=== PATIENT | female | born 1970 | race Caucasian/White ===

== ENCOUNTER 2018-04-03 09:17 | Emergency (ER) | payer SELFPAY ==
[2018-04-03 09:31] VITALS: BP 135/80; PULSE 100; RESP 17; TEMP 37.3; O2SAT 100
--- NOTE | 2018-04-03 10:49 | ED_ITS ---
HPI - Weakness General Chief complaint: Weakness Stated complaint: JOINT SWELLING Time Seen by Provider: 04/03/18 10:40 Source: patient Mode of arrival: ambulatory Limitations: no limitations History of Present Illness HPI Narrative: Patient is an otherwise healthy 47-year-old female for evaluation of bilateral ankle and foot pain and swelling. She also complains of bilateral knee pain and bilateral hip pain. She is also complaining of bilateral wrist and hand pain. No trauma. States she has never had this before. Went to go see a provider over the walk-in clinic who sent her here to the emergency department. She has had subjective fevers. No travel. No camping. No rashes. No history of gout. No recent antibiotics. Related Data Home Medications Medication Instructions Recorded Confirmed Protandim 1 dose PO DAILY 04/03/18 04/03/18 Previous Rx's Medication Instructions Recorded hydrocodone-acetaminophen [P[place] Maria] 1 tab PO Q4-6H PRN #7 tab 04/03/18 prednisone 40 mg PO DAILY #28 tab 04/03/18 Allergies Allergy/AdvReac Type Severity Reaction Status Date / Time codeine [CODEINE] Allergy Unknown Verified 04/03/18 12:09 Penicillins [PENICILLINS] Allergy Unknown Verified 04/03/18 12:09 Sulfa (Sulfonamide Allergy Unknown Verified 04/03/18 12:09 Antibiotics) [SULFA (SULFONAMIDE ANTIBIOTICS)] Review of Systems Constitutional Denies fever(s), Denies headache(s) and Denies weakness Eyes Denies change in vision and Denies diplopia ENT Ears, Nose, Mouth, and Throat: Denies headache(s) and Denies disequilibrium Cardiovascular Denies chest pain, Denies syncope and Denies dyspnea Respiratory Denies dyspnea Gastrointestinal Gastrointestinal: Denies abdominal pain, Denies nausea and Denies vomiting Genitourinary Denies dysuria, Denies pelvic pain and Denies vaginal discharge Musculoskeletal Denies back pain, Reports myalgias, Reports arthralgias and Denies tingling Integumentary/Breasts Denies rash Neurologic Denies behavioral changes, Denies syncope, Denies headache(s), Denies focal weakness, Denies tingling, Reports paresthesias, Denies disequilibrium and Denies weakness Psychiatric Denies anxiety and Denies behavioral changes Hematologic/Lymphatic Denies easy bleeding, Denies easy bruising and Denies lymphadenopathy Allergic/Immunologic Comments: Has had a sore throat [facility] Medical History Healthy adult (Acute) Surgical History History of third molar tooth extraction S/P total abdominal hysterectomy and bilateral salpingo-oophorectomy Status post breast lumpectomy Status post laparoscopy Status post laparoscopy Status post tonsillectomy and adenoidectomy Family History Father Age: 67 Diabetes mellitus Hypertension High cholesterol Grandfather Hypertension Cancer Diabetes mellitus High cholesterol Grandmother Stroke High cholesterol Mother Age: 68 Breast cancer Diabetes mellitus Chemical dependency High cholesterol Grandmother Diabetes mellitus Hypertension Social History Smoking Status: Never smoker second hand exposure: No alcohol intake: current (vodka tonic about once a month.) substance use type: does not use Family History Father Age: 67 Diabetes mellitus Hypertension High cholesterol Grandfather Hypertension Cancer Diabetes mellitus High cholesterol Grandmother Stroke High cholesterol Mother Age: 68 Breast cancer Diabetes mellitus Chemical dependency High cholesterol Grandmother Diabetes mellitus Hypertension Social History Smoking Status: Never smoker second hand exposure: No alcohol intake: current (vodka tonic about once a month.) substance use type: does not use Exam Initial Vital Signs Initial Vital Signs: Vital Signs Temperature 99.1 F 04/03/18 09:31 Pulse Rate 100 H 04/03/18 09:31 Respiratory Rate 17 04/03/18 09:31 Blood Pressure 135/80 04/03/18 09:31 Pulse Oximetry 100 04/03/18 09:31 Const General: cooperative, healthy appearing, well developed, well groomed and No acute distress Orientation: alert, awake and oriented x3 HENMT Head: normal to inspection and normocephalic Chest Chest: normal inspection of the chest Resp Effort & Inspection: normal respiratory effort Auscultation: clear to auscultation bilaterally Cardio Rate: regular rate Rhythm: regular rhythm Pulses: radial pulses present GI Inspection: non-distended Palpation: soft, No firm and No tender Back/Spine/Pelvis Cervical Spine: No cervical spinal tenderness Thoracic/Lumbar Spine: No thoracic spinal tenderness and No lumbar spinal tenderness Skin Lesions: no lesions Rashes: no rashes Neuro General: alert, awake and oriented x3 Extrem Other: Patient can move all 4 extremities. She does have minor swelling to bilateral ankles left being slightly worse than right. Also has some swelling to the hands with left being slightly worse than the right. Does have tenderness to palpation of bilateral knees without any swelling. Same with hips. No elbow tenderness no shoulder tenderness. Psych Appearance: grossly normal and well kempt Course Orders Ordered: ED Orders 04/03/18 10:49 EKG-12 Lead Stat 04/03/18 11:40 C-Reactive Protein Quant Stat Complete Blood Count AUTO DIFF Stat Comprehensive Metabolic Panel Stat Erythrocyte Sedimentation Rate Stat Lipase Stat Monotest Stat Thyroid Stimulating Hormone Stat Uric Acid Stat Discontinued Medications Sodium Chloride (Normal Saline 0.9%) 1,000 mls @ 1,000 mls/hr IV BOLUS ONE Stop: 04/03/18 11:48 Last Admin: 04/03/18 11:59 Dose: 1,000 mls/hr Oxycodone/Acetaminophen (Percocet 5/325) 1 tab PO NOW ONE Stop: 04/03/18 12:08 Last Admin: 04/03/18 12:08 Dose: 1 tab Vital Signs - 8 hr 04/03/18 09:31 04/03/18 12:11 04/03/18 13:40 Temperature 99.1 F Pulse Rate 100 H 87 92 H Respiratory Rate 17 14 18 Blood Pressure 135/80 113/69 Blood Pressure [Left Arm] 122/72 Pulse Oximetry 100 99 98 MDM - Weakness Lab Data Attestation: I reviewed the patient's lab results. Result diagrams: 04/03/18 11:40 04/03/18 11:40 Lab Results 04/03/18 04/03/18 04/03/18 Range/Units 11:40 11:40 11:40 WBC 8.7 (4.5-11.0) X10^3/uL RBC 5.03 (4.0-5.2) X10^6/uL Hgb 14.8 (12.0-16.0) g/dL Hct 42.2 (36-46) % MCV 83.8 (80-100) fL MCH 29.3 (26-34) PG MCHC 35.0 (30-36) % RDW 13.3 (11.6-14.8) % Plt Count 274 (150-400) X10^3/uL Neut % (Auto) 65.7 (50-75) % Lymph % (Auto) 20.8 L (25-40) % [place] % (Auto) 10.7 (3-14) % Eos % (Auto) 1.7 L (2-4) % Baso % (Auto) 1.1 (0-2) % Neut # (Auto) 5700 (3965-8305) /uL Lymph # (Auto) 1800 (8606-9806) /uL [place] # (Auto) 900 (0-900) /uL Eos # (Auto) 100 (0-450) /uL Baso # (Auto) 100 (0-100) /uL ESR 11 (0-20) MM/HR Sodium 137 (137-145) mmol/L Potassium 4.1 (3.4-5.1) mmol/L Chloride 99 (98-107) mmol/L Carbon Dioxide 27 (22-32) mmol/L BUN 12 (7-17) mg/dL Creatinine 0.60 (0.52-1.04) mg/dL Estimated GFR > 60.0 (>60) mL/min BUN/Creatinine Ratio 20.0 (6-22) Glucose 92 (70-100) mg/dL Uric Acid 5.2 (2.5-6.2) mg/dL Calcium 9.5 (8.4-10.2) mg/dL Total Bilirubin 0.9 (0.2-1.3) mg/dL AST 39 H (14-36) IU/L ALT 68 H (9-52) IU/L Alkaline Phosphatase 131 H (38-126) U/L C-Reactive Protein 5.0 H (<1.0) mg/dL Total Protein 8.0 (6.3-8.2) g/dL Albumin 4.6 (3.5-5.0) g/dL Globulin 3.4 (1.7-4.1) g/dL Albumin/Globulin Ratio 1.4 (1.0-2.8) Lipase 27 (23-300) U/L TSH (0.47-4.68) uIU/mL Monoscreen Negative (Negative) 04/03/18 Range/Units 11:40 WBC (4.5-11.0) X10^3/uL RBC (4.0-5.2) X10^6/uL Hgb (12.0-16.0) g/dL Hct (36-46) % MCV (80-100) fL MCH (26-34) PG MCHC (30-36) % RDW (11.6-14.8) % Plt Count (150-400) X10^3/uL Neut % (Auto) (50-75) % Lymph % (Auto) (25-40) % [place] % (Auto) (3-14) % Eos % (Auto) (2-4) % Baso % (Auto) (0-2) % Neut # (Auto) (3408-6218) /uL Lymph # (Auto) (9610-7700) /uL [place] # (Auto) (0-900) /uL Eos # (Auto) (0-450) /uL Baso # (Auto) (0-100) /uL ESR (0-20) MM/HR Sodium (137-145) mmol/L Potassium (3.4-5.1) mmol/L Chloride (98-107) mmol/L Carbon Dioxide (22-32) mmol/L BUN (7-17) mg/dL Creatinine (0.52-1.04) mg/dL Estimated GFR (>60) mL/min BUN/Creatinine Ratio (6-22) Glucose (70-100) mg/dL Uric Acid (2.5-6.2) mg/dL Calcium (8.4-10.2) mg/dL Total Bilirubin (0.2-1.3) mg/dL AST (14-36) IU/L ALT (9-52) IU/L Alkaline Phosphatase (38-126) U/L C-Reactive Protein (<1.0) mg/dL Total Protein (6.3-8.2) g/dL Albumin (3.5-5.0) g/dL Globulin (1.7-4.1) g/dL Albumin/Globulin Ratio (1.0-2.8) Lipase (23-300) U/L TSH 1.62 (0.47-4.68) uIU/mL Monoscreen (Negative) Point of Care Testing Test Results Negative Urine Dip Bedside Urine Glucose Negative Bedside Urine Bilirubin - Negative Bedside Urine Ketone +++ 80 Urine Specific [place] 1.025 Bedside Urine Occult Blood - Negative Bedside Urine pH 5.5 Bedside Urine Protein - Negative Bedside Urine Urobilinogen - Negative Bedside Urine Nitrite - Negative Bedside Urine Leukocytes - Negative Esterase ECG Data Attestation: I personally reviewed and interpreted this ECG as follows: Prior ECG tracings: not available for review Interpretation: Sinus rhythm Ventricular rate of 91 Normal axis Normal QRS Normal QTC No ST T wave changes MDM Narrative Medical decision making narrative: Patient is nontoxic appearing. Her physical exam is not consistent with gout or cellulitis. No specific trauma so doubt musculoskeletal etiology. She has not been traveling in no rashes. Has a low- grade fever today but is less than 100.4. Labs are unremarkable except for slightly elevated CRP which in this case is fairly nonspecific. I considered other rheumatologic issue. Also considered other etiologies such as endocarditis however her physical exam is on labs do not fit this diagnosis. Unsure the exact etiology however I do not feel there is an emergent condition. I do not see any indications for antibiotics. Will hold on any radiologic studies for now. Will send home with a course of steroids. Patient was given return precautions. Patient was given a card with a phone number that she could call to establish primary care in the local area. I do feel she needs a rheumatologic workup. Discharge Plan Departure Patient Disposition: Home Clinical Impression: Polyarthralgia Discharge Date/Time: 04/03/18 13:40 Interventions: ED Discharge Assessment Last Done: 04/03/18 13:40 Instructions: DI for Arthralgia Activity Restrictions/Additional Instructions: Take the steroids and the pain medication as directed. Contact the walk-in clinic or the number on the card you were provided to establish a primary care doctor for follow-up. Return to the emergency department for any new or worsening symptoms Prescriptions: New hydrocodone-acetaminophen [Panna Maria] 5-325 mg tablet 1 tab PO Q4-6H PRN (Reason: pain) Qty: 7 RF: 0 prednisone 20 mg tablet 40 mg PO DAILY Qty: 28 RF: 0 No Action Protandim 1 dose PO DAILY RF: 0 Referrals: Luzma Chua DO [Primary Care Provider] -
--- NOTE | 2018-04-03 11:07 | PC.NURSE ---
tenderness left upper abominal, wiith palpation, right lower abdominal pain with palpation, abd soft, , +bt in 4 quardrant.
--- NOTE | 2018-04-03 11:09 | PC.NURSE ---
Addendum entered by Pili Mora R.N. 04/03/18 11:13: onset of sxs march 24., pain worsen with movement, feverish, not measured at home. has been taking ibuprofen 200mg every 4 hours intermittently, no appetite for couple of days. has been taking herbal supplement, protandum for 2 years. Original Note: noted bilateral ankle with swelling, +dcms intact, bilateral wrist with swelling and small redness multiple places, pt reports, hurts to take deep breath,fingers with multiple swelling and also with redness, rom limited due to pain, +dcms intact. no resp distress noted, breath sound clear to auscultate.
[2018-04-03 11:58] LABS: Add Manual Diff / Slide Review NO; Basophils Absolute Auto 100 /uL (0-100); Basophils Percent Auto 1.1 % (0-2); Eosinophils Absolute Auto 100 /uL (0-450); Eosinophils Percent Auto 1.7 % (2-4); Hematocrit 42.2 % (36-46); Hemoglobin 14.8 g/dL (12.0-16.0); Lymphocytes Absolute Auto 1800 /uL (1100-4500); Lymphocytes Percent Auto 20.8 % (25-40); Mean Corpuscular Hemoglobin 29.3 PG (26-34); Mean Corpuscular Volume 83.8 fL (80-100); Monocytes Absolute Auto 900 /uL (0-900); Monocytes Percent Auto 10.7 % (3-14); Neutrophils Absolute Auto 5700 /uL (1500-7000); Neutrophils Percent Auto 65.7 % (50-75); Platelet Count 274 X10^3/uL (150-400); Red Blood Cell Count 5.03 X10^6/uL (4.0-5.2); Red Cell Distribution Width 13.3 % (11.6-14.8); White Blood Cell Count 8.7 X10^3/uL (4.5-11.0)
[2018-04-03] MEDS: SODIUM CHLORIDE 0.9% 1,000 ML 1000 ML IV (11:59)
[2018-04-03 12:06] LABS: Alanine Aminotransferase 68 IU/L (9-52); Albumin 4.6 g/dL (3.5-5.0); Albumin Globulin Ratio 1.4 (1.0-2.8); Alkaline Phosphatase 131 U/L (38-126); Aspartate Aminotransferase 39 IU/L (14-36); Bilirubin Total 0.9 mg/dL (0.2-1.3); Blood Urea Nitrogen 12 mg/dL (7-17); Calcium 9.5 mg/dL (8.4-10.2); Carbon Dioxide 27 mmol/L (22-32); Chloride 99 mmol/L (98-107); Estimated Glomerular Filt Rate > 60.0 mL/min (>60); Globulin 3.4 g/dL (1.7-4.1); Glucose 92 mg/dL (70-100); HEMOLYSIS < 15 (0-50); Lipase 27 U/L (23-300); Potassium 4.1 mmol/L (3.4-5.1); Sodium 137 mmol/L (137-145); Uric Acid 5.2 mg/dL (2.5-6.2)
[2018-04-03] MEDS: OXYCODONE/ACETAMINOPHEN 5/325 TABLET 1 TAB PO (12:08)
[2018-04-03 12:09] LABS: Monotest Negative (Negative)
[2018-04-03 12:11] VITALS: BP 122/72; PULSE 87; RESP 14; O2SAT 99
[2018-04-03 12:29] LABS: Erythrocyte Sedimentation Rate 11 MM/HR (0-20)
[2018-04-03 13:01] LABS: Thyroid Stimulating Hormone 1.62 uIU/mL (0.47-4.68)
[2018-04-03 13:40] VITALS: BP 113/69; PULSE 92; RESP 18; O2SAT 98
== END 2018-04-03 13:40 | disposition home or self-care (01) ==
PROVIDERS: Emergency Provider Emergency Medicine; PCP Family Medicine
DX: M25.50 Pain in unspecified joint (principal)
CPT/HCPCS: 36591; 80053; 81003; 81025; 83690; 84443; 84550; 85025; 85651; 86140; 86318; 93005; 93010; 96360; 96361; 99283; 99284

== ENCOUNTER → 2020-12-30 14:55 | Outpatient (CLI) | payer OTHER, SELFPAY ==
--- NOTE | 2020-12-30 15:02 | DI.MG.S_ITS ---
BILATERAL DIGITAL DIAGNOSTIC MAMMOGRAM 3D/2D: 12/30/2020 CLINICAL: Focal left breast pain at nipple. Comparison is made to exams dated: 01/20/2017 ultrasound, 01/20/2017 ultrasound, 01/20/2017 mammogram, and 02/27/2014 mammogram - [facility]. There are scattered fibroglandular elements in both breasts. No significant masses, calcifications, or other findings are seen in either breast. IMPRESSION: INCOMPLETE: NEEDS ADDITIONAL IMAGING EVALUATION No suspicious finding. Ultrasound will be performed for further workup. This exam was interpreted at Station ID: [id number]. NOTE: For mammograms, a report in lay terms will be sent to the patient. Approximately 15% of breast malignancies will not be visualized mammographically. In the management of a palpable breast mass, a negative mammogram must not discourage biopsy of a clinically suspicious lesion. Electronically Signed By: Jd Zamarripa M.D. jr/:12/30/2020 15:42:46 Entry: - 01/01/2021 07:26:24 copy to: Omayra Pabon ACR BI-RADS Category 0: Incomplete [id number]
--- NOTE | 2020-12-30 15:02 | DI.US.S_ITS ---
ULTRASOUND OF LEFT BREAST AND AXILLA: 12/30/2020 CLINICAL: Focal left breast pain. Comparison is made to exams dated: 12/30/2020 mammogram, 01/20/2017 ultrasound, 01/20/2017 mammogram, 11/30/2011 mammogram, 02/27/2014 mammogram, and 09/22/2010 mammogram - [facility]. Color flow, real-time, and Doppler ultrasound of the left breast axilla were performed. [place] scale images of the real-time examination were reviewed. No significant abnormalities were seen sonographically in the left breast or the left axilla. IMPRESSION: NEGATIVE There is no sonographic evidence of malignancy. Return to annual mammogram screening schedule is recommended. This exam was interpreted at Station ID: [id number]. Electronically Signed By: Jd Zamarripa M.D., jr/lou:12/30/2020 15:43:14 copy to: Omayra Pabon letter sent: Normal Exam Ultrasound BI-RADS: 1 Negative
== END ==
PROVIDERS: PCP Obstetrics & Gynecology; Referring Provider Obstetrics & Gynecology; Visit Provider Obstetrics & Gynecology
DX: R92.2 Inconclusive mammogram (principal); N64.4 Mastodynia
CPT/HCPCS: 76642; 77066; G0279

== ENCOUNTER → 2021-01-27 09:44 | Outpatient (CLI) | payer OTHER, SELFPAY ==
[2021-01-27 12:03] LABS: Free T4, Direct Thyroxine 1.05 ng/dL (0.78-2.19)
[2021-01-27 12:06] LABS: Follicle Stimulating Hormone 34.7 mIU/mL
[2021-01-27 12:17] LABS: Thyroid Stimulating Hormone 2.29 uIU/mL (0.47-4.68)
[2021-01-27 12:19] LABS: Cancer Antigen 125 6.7 U/mL (0-35)
[2021-02-07 15:08] LABS: Percent Free Testosterone 2.06 % (0.50-2.80); Testosterone Free 0.57 ng/dL (0.10-0.85); Testosterone Total 27.6 ng/dL (.)
== END ==
PROVIDERS: Referring Provider Obstetrics & Gynecology; Visit Provider Obstetrics & Gynecology
DX: R14.0 Abdominal distension (gaseous) (principal)
CPT/HCPCS: 36415; 83001; 84402; 84403; 84439; 84443; 86304

== ENCOUNTER → 2022-08-13 12:00 | Outpatient (CLI) | payer OTHER, SELFPAY | PROVIDERS: Visit Provider Physician Assistant | DX: N39.0 Urinary tract infection, site not specified (principal) | CPT/HCPCS: 87086 ==

== ENCOUNTER → 2022-09-20 16:08 | Outpatient (CLI) | payer OTHER, SELFPAY ==
[2022-09-20 18:13] LABS: Appearance Urine UA Cloudy; Color Urine UA Orange
[2022-09-20 18:17] LABS: Bacteria Urine Moderate (10-30); Culture Indicated Urine Specimen Cultured; Mucus Urine 1+ (Negative); RBC Urine 5-10/HPF (0-5/HPF); Squamous Epithelial Cell Urine None Seen (0-5/HPF); WBC Urine 30-100/HPF (0-5/HPF)
== END ==
PROVIDERS: Referring Provider Obstetrics & Gynecology; Visit Provider Obstetrics & Gynecology
DX: R30.0 Dysuria (principal)
CPT/HCPCS: 81001; 87086

== ENCOUNTER → 2023-02-10 12:39 | Outpatient (CLI) | payer OTHER, SELFPAY ==
[2023-02-10 13:47] LABS: Add Manual Diff / Slide Review NO; Basophils Absolute Auto 100 /uL (0-100); Basophils Percent Auto 1.6 % (0-2); Eosinophils Absolute Auto 200 /uL (0-450); Eosinophils Percent Auto 2.7 % (2-4); Hematocrit 42.3 % (36-46); Hemoglobin 14.2 g/dL (12.0-16.0); Lymphocytes Absolute Auto 1800 /uL (1100-4500); Lymphocytes Percent Auto 31.8 % (25-40); Mean Corpuscular HGB Conc 33.5 % (30-36); Mean Corpuscular Hemoglobin 29.8 PG (26-34); Mean Corpuscular Volume 89.1 fL (80-100); Monocytes Absolute Auto 500 /uL (0-900); Monocytes Percent Auto 8.9 % (3-14); Neutrophils Absolute Auto 3100 /uL (1500-7000); Platelet Count 239 X10^3/uL (150-400); Red Blood Cell Count 4.75 X10^6/uL (4.0-5.2); Red Cell Distribution Width 13.1 % (11.6-14.8); White Blood Cell Count 5.6 X10^3/uL (4.5-11.0)
[2023-02-10 14:04] LABS: BUN Creatinine Ratio 19.7 (6-22); Blood Urea Nitrogen 14 mg/dL (7-17); Calcium 10.1 mg/dL (8.4-10.2); Carbon Dioxide 30 mmol/L (22-32); Chloride 101 mmol/L (98-107); Estimated Glomerular Filt Rate > 60 mL/min (>60); Glucose 82 mg/dL (70-100); HEMOLYSIS < 15 (0-50); Sodium 139 mmol/L (137-145); Uric Acid 3.4 mg/dL (2.5-6.2)
[2023-02-10 14:08] LABS: High Sensitivity CRP - Cardiac 0.6 mg/L (1.0-3.0); Rheumatoid Factor < 8.6 IU/mL (<12.0)
[2023-02-10 14:22] LABS: Erythrocyte Sedimentation Rate 4 MM/HR (0-20)
[2023-02-10 14:45] LABS: Thyroid Stimulating Hormone 0.909 uIU/mL (0.47-4.68)
[2023-02-11 18:34] LABS: SS A Ro Sjogrens Antibody < 0.2 AI (0.0-0.9); SS B La Sjogrens Antibody < 0.2 AI (0.0-0.9)
[2023-02-14 13:37] LABS: ANA Screen, IFA Negative (.)
== END ==
PROVIDERS: Referring Provider Ophthalmology; Visit Provider Physician Assistant Medical
DX: R31.0 Gross hematuria (principal); R39.9 Unspecified symptoms and signs involving the genitourinary system
CPT/HCPCS: 36415; 80048; 84443; 84550; 85025; 85651; 86038; 86140; 86235; 86430

== ENCOUNTER → 2023-11-23 16:34 | Outpatient (ROUT) | payer OTHER, SELFPAY | PROVIDERS: PCP Family Medicine; Visit Provider Specialist | DX: N89.8 Other specified noninflammatory disorders of vagina (principal) | CPT/HCPCS: 87480; 87510; 87660 ==

== ENCOUNTER 2023-12-15 12:23 | Emergency (ER) | payer OTHER, SELFPAY ==
[2023-12-15] VITALS (8 sets, daily range): BP systolic 88–108; BP diastolic 56–70; PULSE 73–82; RESP 16–20; TEMP 36.9; O2SAT 98–100; BMI 22.8
[2023-12-15 13:27] LABS: Add Manual Diff / Slide Review NO; Basophils Absolute Auto 0 /uL (0-100); Basophils Percent Auto 0.8 % (0-2); Eosinophils Absolute Auto 100 /uL (0-450); Eosinophils Percent Auto 2.5 % (2-4); Hematocrit 43.4 % (36-46); Hemoglobin 14.4 g/dL (12.0-16.0); Lymphocytes Absolute Auto 1800 /uL (1100-4500); Lymphocytes Percent Auto 30.3 % (25-40); Mean Corpuscular HGB Conc 33.2 % (30-36); Mean Corpuscular Hemoglobin 30.3 PG (26-34); Mean Corpuscular Volume 91.3 fL (80-100); Monocytes Absolute Auto 500 /uL (0-900); Monocytes Percent Auto 8.4 % (3-14); Neutrophils Absolute Auto 3400 /uL (1500-7000); Platelet Count 236 X10^3/uL (150-400); Prothrombin Time 11.5 SECONDS (9.4-12.5); Red Blood Cell Count 4.75 X10^6/uL (4.0-5.2); Red Cell Distribution Width 13.2 % (11.6-14.8); White Blood Cell Count 5.8 X10^3/uL (4.5-11.0)
[2023-12-15 13:30] LABS: Alanine Aminotransferase 21 IU/L (<35); Albumin 4.6 g/dL (3.5-5.0); Albumin Globulin Ratio 1.8 (1.0-2.8); Alkaline Phosphatase 65 U/L (38-126); Aspartate Aminotransferase 27 IU/L (14-36); BUN Creatinine Ratio 13.3 (6-22); Blood Urea Nitrogen 10 mg/dL (7-17); Calcium 9.6 mg/dL (8.4-10.2); Carbon Dioxide 28 mmol/L (22-32); Chloride 103 mmol/L (98-107); Estimated Glomerular Filt Rate > 60 mL/min (>60); Globulin 2.6 g/dL (1.7-4.1); Glucose 88 mg/dL (70-100); HEMOLYSIS < 15 (0-50); PTT Partial Thromboplastin Tim 38 SECONDS (25.1-36.5); Potassium 3.9 mmol/L (3.4-5.1); Sodium 138 mmol/L (137-145); Total Protein 7.2 g/dL (6.3-8.2)
--- NOTE | 2023-12-15 13:36 | EKG_ITS ---
[address] [address] Test Date: 2023-12-15 Pat Name: Nasima Gruber Department: [facility] Room: Gender: Female Customer Retention Representative: ANNIA : [id number] Requested By: Order Number: [id number] Reading MD: Vick Benavides MD Measurements Intervals [place] Rate: 74 P: 67 MA: 214 QRS: 0 QRSD: 76 T: 49 QT: 374 QTc: 415 Interpretive Statements Sinus rhythm with 1st degree AV block Septal infarct , age undetermined Electronically Signed On 12-15-2023 14:51:52 PST by Vick Benavides MD
--- NOTE | 2023-12-15 15:00 | ED_ITS ---
HPI - Abdominal Pain General Chief Complaint: Abdominal Pain Stated Complaint: severe stomach px constipation black stool Time Seen by Provider: 12/15/23 15:00 Source: patient, RN notes reviewed and old records reviewed Mode of arrival: Ambulatory Limitations: no limitations History of Present Illness HPI narrative: 53-year-old history of diabetes type 2, left-sided duplicated kidney, prior hysterectomy with history of ex lap endometriosis and adhesions x2 who presents with complaint of abdominal pain that has been going on for several days. Patient states she will intermittently have issues where she has a abdominal and rectal pain after a bowel movement for a couple hours and then will resolve. She has not had a bowel movement in about 9 days took a stool softener and Dulcolax on Monday without improvement did not enema and Dulcolax on had a bowel movement had her typical pattern of pain but has not resolved since. She states she did take a dose of Pepto-Bismol last night. After that she had a black bowel movement last night as well as today. She denies fevers. Denies chest pain or shortness of breath. She has had some nausea but no vomiting. She describes pain in his lower abdominal but a little bit more in the left. Little bit of left flank pain as well. Patient denies any urinary symptoms. She has not had any bright red blood in her stool. States her only home medications or majority she has been taking this from 2021. Has a history of hysterectomy, endometriosis had ex lap and lysis of adhesions x2. She also has a known duplicated kidney on the left. States allergies to sulfa and penicillin. No tobacco, alcohol or recreational drugs. Related Data Home Medications Medication Instructions Recorded Confirmed tirzepatide 15 mg/0.5 mL 12.5 mg SUBCUT QWEEK 09/06/23 09/06/23 subcutaneous pen injector Previous Rx's Medication Instructions Recorded prednisone 10 mg tablets in a dose See Rx Instructions PO .COMPLEX 12/15/23 pack #15 ea Allergies Allergy/AdvReac Type Severity Reaction Status Date / Time codeine [CODEINE] Allergy Unknown Verified 12/15/23 12:20 Penicillins [PENICILLINS] Allergy Unknown Verified 12/15/23 12:20 Sulfa (Sulfonamide Allergy Unknown Verified 12/15/23 12:20 Antibiotics) [SULFA (SULFONAMIDE ANTIBIOTICS)] Review of Systems Review of Systems ROS Unobtainable: All systems reviewed & are unremarkable except as noted in HPI and below Patient History Medical History Anxiety (~1999) Frequent UTI (~1991) Type 2 diabetes mellitus without complication, with no history of insulin use Ankle pain Chicken pox (~1975) Endometriosis (~1996) Healthy adult Surgical History History of cholecystectomy (~05/01/20) Anesthesia Bone spur (~2005) Status post laparoscopy (~2003) Status post laparoscopy (~2010) S/P total abdominal hysterectomy and bilateral salpingo-oophorectomy (~2007) Status post breast lumpectomy Status post tonsillectomy and adenoidectomy History of third molar tooth extraction Family History Father Diabetes mellitus Hypertension High cholesterol Cancer Grandfather Hypertension Cancer Diabetes mellitus High cholesterol Grandmother Stroke High cholesterol Heart disease Mother Breast cancer Diabetes mellitus Chemical dependency High cholesterol Hyperlipidemia Hypertension Mental health problem Grandmother Diabetes mellitus Hypertension Heart disease Hyperlipidemia Sister Drowned Grandfather Cancer Diabetes mellitus High cholesterol Hypertension Social History Smoking Status: Former smoker second hand exposure: No alcohol intake: current (vodka tonic about once a month.) substance use type: does not use Smoking Status: Former smoker Exam Narrative Exam Narrative: GENERAL: Alert and oriented x three, female in mild distress. HEENT: Head normocephalic, atraumatic, EOMI, pupils reactive, face symmetric, moist mucous membranes NECK: Supple, full range of motion CARDIOVASCULAR: Regular rate and rhythm without murmurs, rubs or gallops. RESPIRATORY: Breath sounds equal bilaterally, no wheezes rales or rhonchi. ABDOMEN: Soft, patient has some mild tenderness in other quadrants which is referred to the left side, she is tender on the left lower quadrant. Normoactive bowel sounds all 4 quadrants. No guarding or rebound, rigidity, no mass, nondistended. : No CVA tenderness bilaterally EXTREMITIES: Normal range of motion, no clubbing or edema. Neurovascularly intact NEUROLOGICAL: Cranial nerves II through XII grossly intact. Moving all extremities SKIN: Warm, dry, no petechiae, no rashes or lesions. Initial Vital Signs Initial Vital Signs: Vital Signs Temperature 98.5 F 12/15/23 12:26 Pulse Rate 80 12/15/23 12:26 Respiratory Rate 16 12/15/23 12:26 Blood Pressure 101/70 12/15/23 12:26 Pulse Oximetry 100 12/15/23 12:26 Oxygen Delivery Method Room Air 12/15/23 12:26 Course Orders Ordered: ED Orders 12/15/23 12:40 Complete Blood Count AUTO DIFF Stat Comprehensive Metabolic Panel Stat Lipase Stat PTT Partial Thromboplastin Hip[place]ito Stat Prothrombin Time INR Stat Type and Screen Stat 12/15/23 13:08 EKG-12 Lead Stat 12/15/23 15:17 CT abdomen pelvis w con Stat Ondansetron HCl (Ondansetron 4 Mg/2 Ml Inj) 4 mg IV NOW PRN PRN Reason: Nausea And Vomiting Ondansetron HCl (Ondansetron 4 Mg Odt) 4 mg SL NOW PRN PRN Reason: Nausea And Vomiting Discontinued Medications Pantoprazole Sodium (Pantoprazole 40 Mg Vial) 80 mg IV NOW ONE Stop: 12/15/23 13:09 Prednisone (Prednisone 20 Mg Tablet) 60 mg PO NOW ONE Stop: 12/15/23 17:37 Last Admin: 12/15/23 17:41 Dose: 60 mg Documented By: DANG Vital Signs Vital signs: Vital Signs - 8 hr 12/15/23 12:26 12/15/23 12:35 12/15/23 12:35 Temperature 98.5 F Pulse Rate 80 79 Respiratory Rate 16 Blood Pressure 101/70 108/65 Pulse Oximetry 100 100 Oxygen Delivery Method Room Air 12/15/23 13:00 12/15/23 13:00 12/15/23 13:30 Temperature Pulse Rate 75 80 Respiratory Rate 17 19 Blood Pressure 101/64 Pulse Oximetry 99 98 Oxygen Delivery Method 12/15/23 13:30 12/15/23 13:51 12/15/23 13:51 Temperature Pulse Rate 79 Respiratory Rate 20 Blood Pressure 99/65 88/69 L Pulse Oximetry 100 Oxygen Delivery Method 12/15/23 14:00 12/15/23 14:00 12/15/23 14:30 Temperature Pulse Rate 73 Respiratory Rate 17 Blood Pressure 99/56 L 91/59 L Pulse Oximetry 100 Oxygen Delivery Method 12/15/23 14:30 12/15/23 15:00 12/15/23 15:00 Temperature Pulse Rate 82 78 Respiratory Rate 17 16 Blood Pressure 92/58 L Pulse Oximetry 98 100 Oxygen Delivery Method MDM - Abdominal Pain Lab Data 12/15/23 12:40 12/15/23 12:40 Labs: Lab Results 12/15/23 Range/Units 12:40 WBC 5.8 (4.5-11.0) X10^3/uL RBC 4.75 (4.0-5.2) X10^6/uL Hgb 14.4 (12.0-16.0) g/dL Hct 43.4 (36-46) % MCV 91.3 (80-100) fL MCH 30.3 (26-34) PG MCHC 33.2 (30-36) % RDW 13.2 (11.6-14.8) % Plt Count 236 (150-400) X10^3/uL Neut % (Auto) 58.0 (50-75) % Lymph % (Auto) 30.3 (25-40) % [place] % (Auto) 8.4 (3-14) % Eos % (Auto) 2.5 (2-4) % Baso % (Auto) 0.8 (0-2) % Neut # (Auto) 3400 (5621-7895) /uL Lymph # (Auto) 1800 (4634-1736) /uL [place] # (Auto) 500 (0-900) /uL Eos # (Auto) 100 (0-450) /uL Baso # (Auto) 0 (0-100) /uL PT 11.5 (9.4-12.5) SECONDS INR 1.0 (0.9-1.3) APTT 38 H (25.1-36.5) SECONDS Sodium 138 (137-145) mmol/L Potassium 3.9 (3.4-5.1) mmol/L Chloride 103 (98-107) mmol/L Carbon Dioxide 28 (22-32) mmol/L BUN 10 (7-17) mg/dL Creatinine 0.75 (0.52-1.04) mg/dL Estimated GFR > 60 (>60) mL/min BUN/Creatinine Ratio 13.3 (6-22) Glucose 88 (70-100) mg/dL Calcium 9.6 (8.4-10.2) mg/dL Total Bilirubin 1.0 (0.2-1.3) mg/dL AST 27 (14-36) IU/L ALT 21 (<35) IU/L Alkaline Phosphatase 65 (38-126) U/L Total Protein 7.2 (6.3-8.2) g/dL Albumin 4.6 (3.5-5.0) g/dL Globulin 2.6 (1.7-4.1) g/dL Albumin/Globulin Ratio 1.8 (1.0-2.8) Lipase 79 (23-300) U/L Blood Type A Positive Antibody Screen Negative Point of care testing: Urine Dip Bedside Urine Glucose Negative Bedside Urine Bilirubin - Negative Bedside Urine Ketone +/- 5 Urine Specific [place] 1.015 Bedside Urine Occult Blood - Negative Bedside Urine pH 6.0 Bedside Urine Protein - Negative Bedside Urine Urobilinogen - Negative Bedside Urine Nitrite - Negative Bedside Urine Leukocytes - Negative Esterase Imaging Data CT scan - abdomen/pelvis: Radiologist's Impression: [place] [address] CT Scan Report Signed Patient: Nasima Gruber MR#: [id number] : 1970 Acct:[id number] Age/Sex: 53 / F Date of Service: 12/15/23 Loc: ED Accession Number: [id number] Procedure: CT abdomen pelvis w con Ordering Provider: Noelle Carrasquillo D.O. PROCEDURE: CT ABDOMEN PELVIS W CON INDICATIONS: LLQ pain, hx hyst, adhesions TECHNIQUE: After the administration of intravenous contrast, axial sections acquired from the lung bases to the pubic symphysis. Coronal and sagittal reformats were performed. For radiation dose reduction, the following was used: automated exposure control, adjustment of mA and/or kV according to patient size. COMPARISON: [facility], , CT ABDOMEN/PELVIS WITH CONTRAST, 01/08/2021, 13:57. FINDINGS: Image quality: Diagnostic. Lower Chest: No significant findings. ABDOMEN: Liver: No solid mass. Gallbladder: Gallbladder is surgically absent. Biliary ducts: No biliary dilation. Pancreas: No ductal dilation. Spleen: Size is within normal limits. Adrenal Glands: No adrenal nodules. Kidneys and Ureters: No hydronephrosis. No solid mass. No complex renal cystic lesion which requires follow up. Stomach and Bowel: There is no bowel obstruction. No gastric or small bowel wall thickening. Oral contrast is seen in distal sigmoid colon and rectum. There is suggestion of mid to distal sigmoid colon wall thickening and rectal wall thickening and narrowing of the lumen. No significant pericolonic fat stranding. No abscess collection. Peritoneum: No abnormal intraperitoneal fluid. No free air. Ventral Wall: No significant ventral hernia. Abdominal Nodes: No retroperitoneal or mesenteric adenopathy by size criteria. Vessels: Aorta and inferior vena cava are normal in size. PELVIS: Pelvic Organs: Unremarkable. Bladder: No bladder wall thickening, accounting for underdistention. Pelvic Nodes: No enlarged lymph nodes. Miscellaneous: No inguinal hernias are seen. Bones: No aggressive osseous abnormality. IMPRESSION: 1. Wall thickening involving mid to distal sigmoid colon and rectum with narrowing of the lumen. Finding is concerning for infectious or inflammatory sigmoid colitis and proctitis. No abscess collection. No free fluid or free air. 2. No bowel obstruction. No other area of abnormal bowel wall thickening. 3. Patient is status post cholecystectomy. Dictated by: Israel Teixeira M.D. on 12/15/2023 at 16:38 Approved by: Israel Teixeira M.D. on 12/15/2023 at 16:44 ECG Data Attestation: I personally reviewed and interpreted this ECG as follows: Prior ECG tracings: not available for review Interpretation: Sinus with a first-degree AV block rate of 74 MI 214 QRS is 76 QTC 415. No acute change from 04/03/2018. MDM Narrative Medical decision making narrative: Labs show hemoglobin of 14.4 white count of 5.8, platelets of 236. PTT is 38 otherwise coags are normal electrolytes are normal BUN 10 creatinine 0.75 glucose is 88 LFTs are negative. lipase Point of care urine is negative EKG shows sinus rhythm with first-degree AV block rate of 74 MI 214 QRS is 76 QTC of 415. No acute ST elevation or depression noted. Patient history of hysterectomy, known adhesions and endometriosis and duplicate kidney with complaint of left lower quadrant pain after having a bowel movement yesterday. She does note black discoloration to stool but also notes that she had Pepto-Bismol last night prior to that. She has had issues with the abdominal pain on and off in the past but states this has been more persistent localized little bit more to the left. Discussed with patient would like to obtain CT abdomen pelvis to rule out diverticulitis or other obstructive change. Patient was agreeable. She defers anything for pain. CT abdomen pelvis wall thickening involving mid to distal sigmoid colon and rectum with narrowing of the lumen note finding concerning for infectious or inflammatory sigmoid colitis and proctitis no abscess collection no free fluid or free air. No bowel obstruction or area of abnormal bowel wall thickening otherwise. Status post cholecystectomy. Discussed findings with patient she was normal white count has not had any fevers suspect possibly more inflammatory versus infectious sigmoid colitis not noted to be diverticulitis. Discussed risks versus benefits of steroids versus antibiotics. After discussion we will start a course of steroids. Discussed return precautions all questions answered. Patient feels comfortable with the plan. Discussed need for follow up for colonoscopy after symptoms improve to evaluate for any malignancy or other source of her colitis. Discharge Plan Departure Patient Disposition: Home Clinical Impression: Colitis Instructions: DI for Colitis Activity Restrictions/Additional Instructions: Please follow-up for recheck, your imaging today shows some thickening of the sigmoid colon this can sometimes be from infection versus inflammation. Your labs are overall reassuring without any elevation to white blood cell count. I would recommend follow up for colonoscopy after symptoms have improved for further evaluation of that area. Contacts included below for General surgery but you can also follow with gastroenterology for colonoscopy. Please call to set up a follow up appointment. I would recommend taking a short course of steroids to see if this improves your symptoms. Prescription sent to [facility] pharmacy in [place]. Please return for fevers, worsening abdominal back or flank pain, persistent vomiting, persistent black or bloody stools, lightheadedness or passing out or other new or concerning changes. Prescriptions: New prednisone 10 mg tablets,dose pack See Rx Instructions .ROUTE .COMPLEX Qty: 15 0RF Rx Instructions: Take 5 tabs p.o. x1 day, then 4 tablets p.o. x1 day, then 3 tabs p.o. x1 day, then 2 tabs p.o. x1 day, then 1 tab p.o. x1 day No Action tirzepatide 15 mg/0.5 mL pen injector 12.5 mg SUBCUT QWEEK Rx Instructions: Chucky Referrals: Jewel Holloway MD [Physician] - Pavel Raymond DO [Primary Care Provider] - Stand Alone Forms: Patient Portal/API/Survey
[2023-12-15 15:16] LABS: Lipase 79 U/L (23-300)
--- NOTE | 2023-12-15 15:17 | DI.CT.S_ITS ---
PROCEDURE: CT ABDOMEN PELVIS W CON INDICATIONS: LLQ pain, hx hyst, adhesions TECHNIQUE: After the administration of intravenous contrast, axial sections acquired from the lung bases to the pubic symphysis. Coronal and sagittal reformats were performed. For radiation dose reduction, the following was used: automated exposure control, adjustment of mA and/or kV according to patient size. COMPARISON: [facility], , CT ABDOMEN/PELVIS WITH CONTRAST, 01/08/2021, 13:57. FINDINGS: Image quality: Diagnostic. Lower Chest: No significant findings. ABDOMEN: Liver: No solid mass. Gallbladder: Gallbladder is surgically absent. Biliary ducts: No biliary dilation. Pancreas: No ductal dilation. Spleen: Size is within normal limits. Adrenal Glands: No adrenal nodules. Kidneys and Ureters: No hydronephrosis. No solid mass. No complex renal cystic lesion which requires follow up. Stomach and Bowel: There is no bowel obstruction. No gastric or small bowel wall thickening. Oral contrast is seen in distal sigmoid colon and rectum. There is suggestion of mid to distal sigmoid colon wall thickening and rectal wall thickening and narrowing of the lumen. No significant pericolonic fat stranding. No abscess collection. Peritoneum: No abnormal intraperitoneal fluid. No free air. Ventral Wall: No significant ventral hernia. Abdominal Nodes: No retroperitoneal or mesenteric adenopathy by size criteria. Vessels: Aorta and inferior vena cava are normal in size. PELVIS: Pelvic Organs: Unremarkable. Bladder: No bladder wall thickening, accounting for underdistention. Pelvic Nodes: No enlarged lymph nodes. Miscellaneous: No inguinal hernias are seen. Bones: No aggressive osseous abnormality. IMPRESSION: 1. Wall thickening involving mid to distal sigmoid colon and rectum with narrowing of the lumen. Finding is concerning for infectious or inflammatory sigmoid colitis and proctitis. No abscess collection. No free fluid or free air. 2. No bowel obstruction. No other area of abnormal bowel wall thickening. 3. Patient is status post cholecystectomy. Dictated by: Israel Teixeira M.D. on 12/15/2023 at 16:38 Approved by: Israel Teixeira M.D. on 12/15/2023 at 16:44
[2023-12-15] MEDS: predniSONE 20 MG TABLET 60 MG PO (17:41)
== END 2023-12-15 17:50 | disposition home or self-care (01) ==
PROVIDERS: Emergency Provider Emergency Medicine; PCP Family Medicine
DX: K52.9 Noninfective gastroenteritis and colitis, unspecified (principal); I44.0 Atrioventricular block, first degree
CPT/HCPCS: 36415; 74177; 80053; 81003; 83690; 85025; 85610; 85730; 86850; 86900; 86901; 93005; 93010; 99284; Q9967

== ENCOUNTER 2024-10-22 10:07 | Emergency (ER) | payer OTHER, SELFPAY ==
[2024-10-22] VITALS (23 sets, daily range): BP systolic 87–116; BP diastolic 50–70; PULSE 60–96; RESP 11–24; TEMP 36.5; O2SAT 94–100; BMI 22.1
--- NOTE | 2024-10-22 10:14 | DI.RAD.S_ITS ---
PROCEDURE: XR CHEST 1V INDICATIONS: Chest Pain TECHNIQUE: One view of the chest was acquired. COMPARISON: None. FINDINGS: Surgical changes and devices: None. Lungs and pleura: Lungs are clear. No pleural effusions or pneumothorax. Mediastinum: Mediastinal contours appear normal. Heart size is normal. Bones and chest wall: No suspicious bony lesions. Overlying soft tissues appear unremarkable. IMPRESSION: No acute cardiopulmonary abnormality is seen. Dictated by: Sandra Choudhury MD, PhD on 10/22/2024 at 10:59 Approved by: Sandra Choudhury MD, PhD on 10/22/2024 at 10:59
--- NOTE | 2024-10-22 10:19 | EKG_ITS ---
[address] [address] Test Date: 2024-10-22 Pat Name: Nasima Gruber Department: Room: Gender: Female [employer]: ROSHNI : 1970 Requested By: Order Number: [id number] Reading MD: Vick Benavides MD Measurements Intervals Lena Rate: 64 P: 54 MI: 152 QRS: 45 QRSD: 82 T: 65 QT: 424 QTc: 437 Interpretive Statements Normal sinus rhythm Electronically Signed On 10-22-2024 10:31:20 PDT by Vick Benavides MD
[2024-10-22 10:28] LABS: Add Manual Diff / Slide Review NO; Hematocrit 41.1 % (36-46); Hemoglobin 14.2 g/dL (12.0-16.0); Lymphocytes Absolute Auto 1800 /uL (1100-4500); Mean Corpuscular HGB Conc 34.5 % (30-36); Mean Corpuscular Hemoglobin 29.9 PG (26-34); Mean Corpuscular Volume 86.7 fL (80-100); Platelet Count 194 X10^3/uL (150-400)
[2024-10-22 10:35] LABS: INR 1.1 (0.9-1.3); Prothrombin Time 11.9 SECONDS (9.4-12.5)
--- NOTE | 2024-10-22 10:35 | ED_ITS ---
HPI - Dizziness General Chief Complaint: Dizziness Stated Complaint: Low blood pressure, Fell this morning Time Seen by Provider: 10/22/24 10:08 Source: patient Mode of arrival: Ambulatory History of Present Illness HPI Narrative: Patient is a 54-year-old female on a DLP 2 but only taking every other week presenting today with hypotension and dizziness. She reports that her blood pressure is somewhat low at baseline however last night she went up to go to the bathroom and was dizzy lightheaded and fell. Reports no injury no head injury no loss of consciousness however this morning she still did not feel quite right and took her blood pressure at home. Blood pressures at home or systolic 80-96. She reports that she turned over to her left side and felt the room started spinning. She has no chest pain no palpitations. She has had no nausea no vomiting. She reports that she has been eating normal. She said that she had a normal workday yesterday she had a normal dinner last night. She has no numbness tingling or weakness Related Data Home Medications ?Medication ?Instructions ?Recorded ?Confirmed tirzepatide 15 mg/0.5 mL 12.5 mg SUBCUT QWEEK 4 03/04/24 subcutaneous pen injector Previous Rx's ?Medication ?Instructions ?Recorded atovaquone 250 mg-proguanil 100 mg See Rx Instructions PO .COMPLEX 02/12/24 tablet (Malarone) #42 tabs meclizine 25 mg tablet 25 mg PO TID PRN dizziness # 10 tabs 10/22/24 Allergies Allergy/AdvReac Type Severity Reaction Status Date / Time codeine (CODEINE) Allergy Unknown Verified 10/22/24 10:15 Penicillins (PENICILLINS) Allergy Unknown Verified 10/22/24 10:15 Sulfa (Sulfonamide Allergy Unknown Verified 10/22/24 10:15 Antibiotics) (SULFA (SULFONAMIDE ANTIBIOTICS)) Patient History Medical History Mastodynia (04/10/14) Joint pain, hip Joint pain of ankle and foot Anxiety (~1999) Frequent UTI (~1991) Type 2 diabetes mellitus without complication, with no history of insulin use Ankle pain Chicken pox (~1975) Endometriosis (~1996) Healthy adult Surgical History History of cholecystectomy (~05/01/20) Anesthesia Bone spur (~2005) Status post laparoscopy (~2003) Status post laparoscopy (~2010) S/P total abdominal hysterectomy and bilateral salpingo-oophorectomy (~2007) Status post breast lumpectomy Status post tonsillectomy and adenoidectomy History of third molar tooth extraction Family History Father Diabetes mellitus Hypertension High cholesterol Cancer Grandfather Hypertension Cancer Diabetes mellitus High cholesterol Grandmother Stroke High cholesterol Heart disease Mother Breast cancer Diabetes mellitus Chemical dependency High cholesterol Hyperlipidemia Hypertension Mental health problem Grandmother Diabetes mellitus Hypertension Heart disease Hyperlipidemia Sister Drowned Grandfather Cancer Diabetes mellitus High cholesterol Hypertension Social History Smoking Status: Unknown if ever smoked second hand exposure: No alcohol intake: current (vodka tonic about once a month.) substance use type: does not use Smoking Status: Unknown if ever smoked Exam Initial Vital Signs Initial Vital Signs: Vital Signs Temperature 97.7 F 10/22/24 10:08 Pulse Rate 68 10/22/24 10:08 Respiratory Rate 14 10/22/24 10:08 Blood Pressure 116/70 10/22/24 10:08 Pulse Oximetry 100 10/22/24 10:08 Oxygen Delivery Method Room Air 10/22/24 10:08 GENERAL: Alert pleasant well-appearing 54-year-old female and in no acute distress. HEENT: Head atraumatic,EOMI, pupils reactive, face symmetric, moist mucous membranes CARDIOVASCULAR: Regular rate and rhythm without murmurs, rubs or gallops. RESPIRATORY: Breath sounds equal bilaterally, no wheezes rales or rhonchi. ABDOMEN: Soft, nontender. Normoactive bowel sounds all 4 quadrants. No guarding or rebound. EXTREMITIES: Normal range of motion, no clubbing or edema. Neurovascularly intact NEUROLOGICAL: Alert and oriented x4.Normal gait and speech. Cranial nerves II through XII grossly intact. SKIN: Warm, dry, no laceration, no petechiae, no rashes or lesions. Course Orders Ordered: ED Orders 10/22/24 10:14 XR chest 1V Stat EKG-12 Lead Stat 10/22/24 10:20 Complete Blood Count AUTO DIFF Stat Comprehensive Metabolic Panel Stat Lipase Stat Magnesium Stat NT-proBNP (BNP-Adult 18+) Stat PTT Partial Thromboplastin Hipolito Stat Prothrombin Time INR Stat Troponin & CK Cardiac Panel Stat 10/22/24 10:33 Urine Culture Stat Urine Microscopic Stat 10/22/24 13:55 Blood Culture Stat Lactate (Lactic Acid) Stat 10/22/24 14:21 Covid-19 + FLU A/B + RSV - PCR Stat Discontinued Medications Aspirin (Aspirin 81 Mg Chew Tab) 324 mg PO NOW ONE Stop: 10/22/24 10:15 Last Admin: 10/22/24 10:54 Dose: Not Given Documented By: CHEVY Sodium Chloride (Normal Saline 0.9%) 1,000 mls @ 1,000 mls/hr IV BOLUS ONE Stop: 10/22/24 11:41 Last Infusion: 10/22/24 11:50 Dose: Infused Documented By: Admin: 10/22/24 10:45 Dose: 1,000 mls/hr Documented By: CHEVY Sodium Chloride (Normal Saline 0.9%) 1,000 mls @ 1,000 mls/hr IV BOLUS ONE Stop: 10/22/24 12:28 Last Infusion: 10/22/24 13:25 Dose: Infused Documented By: Admin: 10/22/24 11:56 Dose: 1,000 mls/hr Documented By: JUDY Meclizine HCl (Meclizine Hcl 12.5 Mg Tablet) 25 mg PO NOW ONE Stop: 10/22/24 14:40 Vital Signs Vital signs: Vital Signs - 8 hr 10/22/24 10:08 10/22/24 10:11 10/22/24 10:12 Temperature 97.7 F Pulse Rate 68 66 Pulse Rate [Orthostatic Lying] Pulse Rate [Orthostatic Sitting] Pulse Rate [Orthostatic Standing] Respiratory Rate 14 Blood Pressure 116/70 Blood Pressure [Orthostatic Lying] Blood Pressure [Orthostatic Sitting] Blood Pressure [Orthostatic Standing] Pulse Oximetry 100 94 100 Oxygen Delivery Method Room Air Room Air 10/22/24 10:12 10/22/24 10:31 10/22/24 10:33 Temperature Pulse Rate 70 64 Pulse Rate [Orthostatic Lying] Pulse Rate [Orthostatic Sitting] Pulse Rate [Orthostatic Standing] Respiratory Rate 15 Blood Pressure 116/70 Blood Pressure [Orthostatic Lying] Blood Pressure [Orthostatic Sitting] Blood Pressure [Orthostatic Standing] Pulse Oximetry 100 100 Oxygen Delivery Method 10/22/24 10:33 10/22/24 10:38 10/22/24 10:38 Temperature Pulse Rate 64 Pulse Rate [Orthostatic Lying] Pulse Rate [Orthostatic Sitting] Pulse Rate [Orthostatic Standing] Respiratory Rate 20 Blood Pressure 109/66 99/55 L Blood Pressure [Orthostatic Lying] Blood Pressure [Orthostatic Sitting] Blood Pressure [Orthostatic Standing] Pulse Oximetry 100 Oxygen Delivery Method 10/22/24 10:40 10/22/24 10:40 10/22/24 10:42 Temperature Pulse Rate 65 81 Pulse Rate [Orthostatic Lying] Pulse Rate [Orthostatic Sitting] Pulse Rate [Orthostatic Standing] Respiratory Rate 24 22 Blood Pressure 104/56 L Blood Pressure [Orthostatic Lying] Blood Pressure [Orthostatic Sitting] Blood Pressure [Orthostatic Standing] Pulse Oximetry 100 Oxygen Delivery Method 10/22/24 10:42 10/22/24 10:43 10/22/24 10:43 Temperature Pulse Rate 93 H Pulse Rate [Orthostatic Lying] Pulse Rate [Orthostatic Sitting] Pulse Rate [Orthostatic Standing] Respiratory Rate 17 Blood Pressure 98/62 101/56 L Blood Pressure [Orthostatic Lying] Blood Pressure [Orthostatic Sitting] Blood Pressure [Orthostatic Standing] Pulse Oximetry Oxygen Delivery Method Room Air 10/22/24 10:48 10/22/24 11:00 10/22/24 11:00 Temperature Pulse Rate 60 Pulse Rate [Orthostatic Lying] 65 Pulse Rate [Orthostatic Sitting] 82 Pulse Rate [Orthostatic Standing] 96 H Respiratory Rate 20 Blood Pressure 93/56 L Blood Pressure [Orthostatic Lying] 104/56 L Blood Pressure [Orthostatic Sitting] 98/62 Blood Pressure [Orthostatic Standing] 101/56 L Pulse Oximetry 100 Oxygen Delivery Method 10/22/24 11:27 10/22/24 11:27 10/22/24 11:30 Temperature Pulse Rate 63 64 Pulse Rate [Orthostatic Lying] Pulse Rate [Orthostatic Sitting] Pulse Rate [Orthostatic Standing] Respiratory Rate 16 15 Blood Pressure 102/56 L Blood Pressure [Orthostatic Lying] Blood Pressure [Orthostatic Sitting] Blood Pressure [Orthostatic Standing] Pulse Oximetry 100 100 Oxygen Delivery Method 10/22/24 11:30 10/22/24 12:00 10/22/24 12:00 Temperature Pulse Rate 63 Pulse Rate [Orthostatic Lying] Pulse Rate [Orthostatic Sitting] Pulse Rate [Orthostatic Standing] Respiratory Rate 19 Blood Pressure 91/56 L 90/55 L Blood Pressure [Orthostatic Lying] Blood Pressure [Orthostatic Sitting] Blood Pressure [Orthostatic Standing] Pulse Oximetry 99 Oxygen Delivery Method 10/22/24 12:30 10/22/24 12:30 10/22/24 12:46 Temperature Pulse Rate 63 Pulse Rate [Orthostatic Lying] Pulse Rate [Orthostatic Sitting] Pulse Rate [Orthostatic Standing] Respiratory Rate 15 Blood Pressure 95/53 L 94/55 L Blood Pressure [Orthostatic Lying] Blood Pressure [Orthostatic Sitting] Blood Pressure [Orthostatic Standing] Pulse Oximetry 100 Oxygen Delivery Method 10/22/24 12:46 10/22/24 13:00 10/22/24 13:00 Temperature Pulse Rate 67 62 Pulse Rate [Orthostatic Lying] Pulse Rate [Orthostatic Sitting] Pulse Rate [Orthostatic Standing] Respiratory Rate 17 16 Blood Pressure 94/60 Blood Pressure [Orthostatic Lying] Blood Pressure [Orthostatic Sitting] Blood Pressure [Orthostatic Standing] Pulse Oximetry 99 100 Oxygen Delivery Method 10/22/24 13:30 10/22/24 13:30 10/22/24 13:39 Temperature Pulse Rate 67 Pulse Rate [Orthostatic Lying] Pulse Rate [Orthostatic Sitting] Pulse Rate [Orthostatic Standing] Respiratory Rate 16 Blood Pressure 87/50 L 88/52 L Blood Pressure [Orthostatic Lying] Blood Pressure [Orthostatic Sitting] Blood Pressure [Orthostatic Standing] Pulse Oximetry 99 Oxygen Delivery Method 10/22/24 13:39 10/22/24 14:00 10/22/24 14:30 Temperature Pulse Rate 64 69 Pulse Rate [Orthostatic Lying] Pulse Rate [Orthostatic Sitting] Pulse Rate [Orthostatic Standing] Respiratory Rate 20 20 Blood Pressure 88/54 L Blood Pressure [Orthostatic Lying] Blood Pressure [Orthostatic Sitting] Blood Pressure [Orthostatic Standing] Pulse Oximetry 100 99 Oxygen Delivery Method 10/22/24 14:30 Temperature Pulse Rate 66 Pulse Rate [Orthostatic Lying] Pulse Rate [Orthostatic Sitting] Pulse Rate [Orthostatic Standing] Respiratory Rate 19 Blood Pressure Blood Pressure [Orthostatic Lying] Blood Pressure [Orthostatic Sitting] Blood Pressure [Orthostatic Standing] Pulse Oximetry 99 Oxygen Delivery Method MDM - Dizziness Lab Data 10/22/24 10:20 10/22/24 10:20 Labs: Lab Results 10/22/24 10/22/24 10/22/24 Range/Units 10:20 10:33 13:55 WBC 4.6 (4.5-11.0) X10^3/uL RBC 4.75 (4.0-5.2) X10^6/uL Hgb 14.2 (12.0-16.0) g/dL Hct 41.1 (36-46) % MCV 86.7 (80-100) fL MCH 29.9 (26-34) PG MCHC 34.5 (30-36) % RDW 12.7 (11.6-14.8) % Plt Count 194 (150-400) X10^3/uL Neut % (Auto) 48.7 L (50-75) % Lymph % (Auto) 38.2 (25-40) % [place] % (Auto) 8.2 (3-14) % Eos % (Auto) 3.8 (2-4) % Baso % (Auto) 1.1 (0-2) % Neut # (Auto) 2200 (9285-3968) /uL Lymph # (Auto) 1800 (4392-1328) /uL [place] # (Auto) 400 (0-900) /uL Eos # (Auto) 200 (0-450) /uL Baso # (Auto) 100 (0-100) /uL PT 11.9 (9.4-12.5) SECONDS INR 1.1 (0.9-1.3) APTT 31 (25.1-36.5) SECONDS Sodium 138 (137-145) mmol/L Potassium 3.5 (3.4-5.1) mmol/L Chloride 106 (98-107) mmol/L Carbon Dioxide 25 (22-32) mmol/L BUN 8 (7-17) mg/dL Creatinine 0.55 (0.52-1.04) mg/dL Estimated GFR > 60 (>60) mL/min BUN/Creatinine Ratio 14.5 (6-22) Glucose 96 (70-99) mg/dL Lactate 0.6 L (0.7-2.1) mmol/L Calcium 9.4 (8.4-10.2) mg/dL Magnesium 1.9 (1.6-2.3) mg/dL Total Bilirubin 0.7 (0.2-1.3) mg/dL AST 26 (14-36) IU/L ALT 22 (<35) IU/L Alkaline Phosphatase 51 (38-126) U/L Total Creatine Kinase 54 (30-135) U/L Troponin I < 0.012 (0.01-0.034) ng/mL NT-Pro-B Natriuret Pep 55 (<125) pg/mL Total Protein 7.0 (6.3-8.2) g/dL Albumin 4.4 (3.5-5.0) g/dL Globulin 2.6 (1.7-4.1) g/dL Albumin/Globulin Ratio 1.7 (1.0-2.8) Lipase 132 (23-300) U/L Urine RBC None seen (0-5/HPF) Urine WBC 5-10/hpf H (0-5/HPF) Ur Squamous Epith Cells 0-1 /hpf (0-5/HPF) Ur Transition Epith Cell 0-1/hpf (0-5/HPF) Ur Renal Epithelial Cell 1-5/hpf H (0-1/HPF) Urine Bacteria Moderate (10-30) H (None) Ur Culture Indicated? Specimen cultured Vol Urine Centrifuged 10ml (spun) Urine Dip Bedside Urine Glucose Negative Bedside Urine Bilirubin - Negative Bedside Urine Ketone - Negative Urine Specific [place] 1.005 Bedside Urine Occult Blood - Negative Bedside Urine pH 6.5 Bedside Urine Protein - Negative Bedside Urine Urobilinogen - Negative Bedside Urine Nitrite - Negative Bedside Urine Leukocytes ++ 125 Esterase ECG Data Attestation: I personally reviewed and interpreted this ECG as follows: Interpretation: Normal sinus rhythm rate 64 CT interval 152 QRS [address] changes no T- wave inversion [facility] Narrative Medical decision making narrative: [facility] CC: Dizzy lightheaded, hypotensive Complicating co-morbidities: None Data collected from: Patient and has been Medical records reviewed: Previous blood pressures reviewed Differential considered: Sepsis dehydration anemia electrolyte abnormality Exam documented above, pertinent findings include: Awake alert well-appearing 54-year-old female no focal deficits abdomen soft no nystagmus NIH is 0 Lab Test results independently reviewed as above. Pertinent findings: CBC no leukocytosis no anemia CMP electrolytes within normal limits creatinine 0.55 Lactate 0.6 Troponin negative Independently reviewed EKG as above Sinus rhythm no ischemia Imaging studies independently reviewed: None done Consultations: None Treatments: 2 L IV fluid and food, blood pressure remains low Re-evaluations: 1315 patient ambulated to the restroom needed some Douglas maneuver, did reproduce dizziness patient needed to lie back down Discussion: Patient is a 54-year-old female presenting today with dizziness and lightheadedness. Initially thought it was secondary to hypotension series received 2 L of IV fluids blood pressure did not change significantly. Ambulated patient she is still need to like some assistance. Upon further review blood pressure is always low, blood pressure 12/15/2023 was ED 869, 99/56, 91/59, 92/58, blood pressure in 03/04/2024 94/60. Patient has a normal lactate no leukocytosis no evidence of infection blood work is all within normal limits. I suspect that patient always has a low blood pressure and today has some vertigo. Douglas maneuver reproduced symptoms she is able to sit and read her phone she is able to ambulate she does not have blurry vision or double vision. At this time I see no reason for any sort of imaging. She has had food and drink in the emergency department as well she has no nausea or vomiting. Discharge Plan Departure Patient Disposition: Home Clinical Impression: Vertigo Instructions: DI for Vertigo Activity Restrictions/Additional Instructions: *You have been diagnosed with vertigo *What to do: At this time this should spontaneously get better for you I hope it happens soon. You may try the Douglas maneuver at home as needed and take meclizine as needed as well. If symptoms persist may require imaging *Continue to take medications as directed Meclizine 25 mg every 8 hours for dizzy *Follow up with your primary care provider in 2-3 days or call [phone] *Return to ER if you should have persistent dizziness weakness persistent vomiting or any new, worsening or concerning symptoms Prescriptions: New meclizine 25 mg tablet 25 mg PO TID PRN (Reason: dizziness) Qty: 10 0RF No Action atovaquone-proguanil [Malarone] 250-100 mg tablet See Rx Instructions PO .COMPLEX Qty: 42 0RF Rx Instructions: take 1 tab once daily x1 day before exposure, during time in area, and x7 days after leaving area PO tirzepatide 15 mg/0.5 mL pen injector 12.5 mg SUBCUT QWEEK Rx Instructions: [place] Referrals: Pavel Raymond DO [Primary Care Provider, Family Practice] Stand Alone Forms: Patient Portal/API
[2024-10-22 10:38] LABS: PTT Partial Thromboplastin Tim 31 SECONDS (25.1-36.5)
[2024-10-22 10:40] LABS: Alanine Aminotransferase 22 IU/L (<35); Albumin 4.4 g/dL (3.5-5.0); Albumin Globulin Ratio 1.7 (1.0-2.8); Alkaline Phosphatase 51 U/L (38-126); Blood Urea Nitrogen 8 mg/dL (7-17); Calcium 9.4 mg/dL (8.4-10.2); Carbon Dioxide 25 mmol/L (22-32); Chloride 106 mmol/L (98-107); Creatine Kinase 54 U/L (30-135); Estimated Glomerular Filt Rate > 60 mL/min (>60); Globulin 2.6 g/dL (1.7-4.1); Glucose 96 mg/dL (70-99); HEMOLYSIS < 15 (0-50); Lipase 132 U/L (23-300); Magnesium 1.9 mg/dL (1.6-2.3); Potassium 3.5 mmol/L (3.4-5.1); Sodium 138 mmol/L (137-145); Total Protein 7.0 g/dL (6.3-8.2)
[2024-10-22] MEDS: SODIUM CHLORIDE 0.9% 1,000 ML 1000 ML IV ×2 (10:45→11:56)
[2024-10-22 10:51] LABS: NT-proBNP (BNP-Adult 18+) 55 pg/mL (<125); Troponin I < 0.012 ng/mL (0.01-0.034)
[2024-10-22 11:24] LABS: Culture Indicated Urine Specimen Cultured
[2024-10-22 14:18] LABS: Lactate (Lactic Acid) 0.6 mmol/L (0.7-2.1)
[2024-10-22 15:53] LABS: Influenza A - CEPHEID Flu A NEGATIVE (NEGATIVE); Influenza B - CEPHEID Flu B NEGATIVE (NEGATIVE)
[2024-10-22 15:59] LABS: COVID-19 CEPHEID 4-PLEX PCR Negative (Negative)
== END 2024-10-22 15:40 | disposition home or self-care (01) ==
PROVIDERS: Emergency Provider Emergency Medicine; PCP Family Medicine
DX: R42 Dizziness and giddiness (principal)
CPT/HCPCS: 36415; 71045; 80053; 81003; 81015; 82550; 83605; 83690; 83735; 83880; 84484; 85025; 85610; 85730; 87040; 87077; 87086; 87186; 87637; 93005; 93010; 96360; 96361; 99284